=== PATIENT | female | born 1975 ===

== ENCOUNTER 2018-12-15 14:34 | Emergency (ER) | payer MEDICAID ==
[2018-12-15 14:41] VITALS: BP 123/79
--- NOTE | 2018-12-15 14:44 | ER Report ---
History and Physical Time Seen By MD: 14:44 HPI/ROS CHIEF COMPLAINT: Bug bite to right lower leg HISTORY OF PRESENT ILLNESS: Patient is a 43-year-old female with no contributory past medical history who presents with multiple "bug bites to the right lower extremity. She noticed some pimples this morning to the area which he popped and now she has an area of erythema that measures approximately 8 cm in total diameter. No fevers or chills no other symptoms no shortness of breath. Patient is visiting from the [facility]. Allergies: Coded Allergies: bupropion (Verified Allergy, Intermediate, HIVES , 12/15/18) Sulfa (Sulfonamide Antibiotics) (Verified Allergy, Mild, "FLU LIKE SYMPTOMS", 12/15/18) Past Medical/Surgical History Noncontributory Constitutional Vital Sign - Last 24 Hours 12/15/18 14:41 Temp 98.9 Pulse 81 Resp 16 B/P (MAP) 123/79 Pulse Ox 97 O2 Delivery Room Air Physical Exam Examination of the right lower extremity reveals 2 punctate pustules that have been opened. There is no area of erythema that is proximal to 8 days in diameter surrounding these pustules. Evidence of necrotic tissue. No fluctuance and no active bleeding or discharge. Medical Decision Making ED Course/Re-evaluation ED Course Plan at this time will be discharged patient on oral cephalexin. A pen alethea was drawn on the patient's leg delineating the extent of the erythema. Patient instructed to return to the emergency department if she develops worsening redness or she develops fever at any time. Decision to Disposition Date: December 15, 2018 Decision to Disposition Time: 14:58 Depart Departure Latest Vital Signs Vital Signs Date Time Temp Pulse Resp B/P (MAP) Pulse Ox O2 Delivery O2 Flow Rate FiO2 12/15/18 14:41 98.9 81 16 123/79 97 Room Air Impression: Primary Impression: Bug bite with infection Condition: Improved Disposition: HOME OR SELF-CARE New Scripts Cephalexin (KEFLEX) 500 Mg Capsule 500 MG PO Q6H, #28 CAP 0 Refills TAKE ONE CAPSULE BY MOUTH EVERY SIX HOURS Prov: ABBY RODRIGUEZ MD 12/15/18 Patient Instructions: Cellulitis (ED) Problem Qualifiers Primary Impression: Bug bite with infection Encounter type: initial encounter Qualified Codes: W57.XXXA - Bitten or stung by nonvenomous insect and other nonvenomous arthropods, initial encounter ABBY RODRIGUEZ MD December 15, 2018 14:44
[2018-12-15] MEDS ORDERED: CEPHALEXIN MONO 500 MG CAP PO ONE (14:55)
[2018-12-15] MEDS ORDERED: DIPHTH/TETANUS/ACEL. PERTUSSIS IM ONLY ONE (14:55)
[2018-12-15] MEDS ORDERED: GABA-549 PO (14:57)
[2018-12-15] MEDS ORDERED: LAMOT150PT GT (14:57)
[2018-12-15] MEDS ORDERED: BUPR1FIL SL (14:57)
[2018-12-15] MEDS ORDERED: CEPH-13 PO (14:59)
== END 2018-12-15 15:32 | disposition home or self-care (01) ==
LOC: ER 14:49
DX: S80.861A Insect bite (nonvenomous), right lower leg, initial encounter (principal); W57.XXXA Bitten or stung by nonvenomous insect and other nonvenomous arthropods, initial encounter
CPT/HCPCS: 90471; 90715; 99283